=== PATIENT | male | born 1965 | race Caucasian/White ===

== ENCOUNTER 2016-09-30 10:10 | Emergency (ER) | payer OTHER ==
[2016-09-30 10:29] VITALS: TEMP 98.3
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
[2016-09-30 11:02] VITALS: BP 184/102
[2016-09-30 11:45] VITALS: O2SAT 95
== END 2016-09-30 10:50 | disposition home or self-care (01) ==
LOC: ER 10:10
DX: Z04.2 Encounter for examination and observation following work accident (principal); R01.1 Cardiac murmur, unspecified; I10 Essential (primary) hypertension; V49.49XA Driver injured in collision with other motor vehicles in traffic accident, initial encounter; Y92.488 Other paved roadways as the place of occurrence of the external cause; Y99.0 Civilian activity done for income or pay

== ENCOUNTER → 2017-04-13 | Outpatient (CLI) | payer SELFPAY | END | disposition home or self-care (01) | LOC: YCFC.O 09:50 | PROVIDERS: ATTEND Nurse Practitioner Family | DX: E11.9 Type 2 diabetes mellitus without complications (principal) ==

== ENCOUNTER → 2018-02-06 | Outpatient (CLI) | payer BC | LOC: GMAJ 15:18 | PROVIDERS: ATTEND Family Medicine | DX: Z00.00 Encounter for general adult medical examination without abnormal findings (principal) ==

== ENCOUNTER → 2019-04-17 | Outpatient (CLI) | payer BC | LOC: GMAJ 11:02 | PROVIDERS: ATTEND Family Medicine | DX: Z12.5 Encounter for screening for malignant neoplasm of prostate (principal) ==